=== PATIENT | female | born 1950 | race Two or more races ===

== ENCOUNTER 2019-02-15 12:24 | Outpatient (CLI) | payer OTHER ==
[~2019-02-15 12:24] MED LIST: ASA325 M1; COUMADIN3 MG PO; METOPROLOL SUCC25 MG
== END 2019-02-15 12:27 | disposition home or self-care (01) ==
LOC: MAMO-SONO 12:24
DX: Z12.31 Encounter for screening mammogram for malignant neoplasm of breast (principal); Z87.898 Personal history of other specified conditions

== ENCOUNTER → 2019-02-21 | Outpatient (CLI) | payer OTHER | END | disposition home or self-care (01) | LOC: NUCLEAR 14:00 | DX: M81.0 Age-related osteoporosis without current pathological fracture (principal) ==

== ENCOUNTER → 2019-06-13 | Outpatient (CLI) | payer OTHER | END | disposition home or self-care (01) | LOC: NUCLEAR 10:00 | DX: I87.009 Postthrombotic syndrome without complications of unspecified extremity (principal); I82.602 Acute embolism and thrombosis of unspecified veins of left upper extremity ==

== ENCOUNTER 2019-06-14 08:23 | Outpatient (CLI) | payer OTHER | END 2019-06-14 09:30 | disposition home or self-care (01) | LOC: NUCLEAR 08:23 | DX: I75.012 Atheroembolism of left upper extremity (principal); I87.009 Postthrombotic syndrome without complications of unspecified extremity; I82.602 Acute embolism and thrombosis of unspecified veins of left upper extremity ==

== ENCOUNTER 2023-08-04 07:07 | Outpatient (CLI) | payer OTHER | END 2023-08-04 07:09 | disposition home or self-care (01) | LOC: NUCLEAR 07:07 | PROVIDERS: ATTEND Specialist | DX: D35.1 Benign neoplasm of parathyroid gland (principal) | CPT/HCPCS: 78072; A9500 ==

== ENCOUNTER → 2024-08-07 | Outpatient (CLI) | payer OTHER | END | disposition home or self-care (01) | LOC: NUCLEAR 09:22 | PROVIDERS: ATTEND General Practice | DX: I73.9 Peripheral vascular disease, unspecified (principal); I87.2 Venous insufficiency (chronic) (peripheral) ==

== ENCOUNTER 2024-08-10 09:32 | Outpatient (CLI) | payer OTHER | END 2024-08-10 09:36 | disposition home or self-care (01) | LOC: NUCLEAR 09:32 | PROVIDERS: ATTEND General Practice | DX: I73.9 Peripheral vascular disease, unspecified (principal); I87.2 Venous insufficiency (chronic) (peripheral) ==

== ENCOUNTER 2024-08-14 10:26 | Outpatient (CLI) | payer OTHER | END 2024-08-14 10:30 | disposition home or self-care (01) | LOC: MAMO-SONO 10:26 | PROVIDERS: ATTEND General Practice | DX: N64.4 Mastodynia (principal); N60.11 Diffuse cystic mastopathy of right breast; N60.12 Diffuse cystic mastopathy of left breast; Z12.31 Encounter for screening mammogram for malignant neoplasm of breast ==

== ENCOUNTER 2024-08-29 10:29 | Outpatient (CLI) | payer OTHER | END 2024-08-29 10:32 | disposition home or self-care (01) | LOC: SONOGRAMA 10:29 | PROVIDERS: ATTEND General Practice | DX: E03.9 Hypothyroidism, unspecified (principal); E06.9 Thyroiditis, unspecified ==

== ENCOUNTER 2024-12-02 09:21 | Inpatient (IN) | payer OTHER ==
[~2024-12-02] VITALS: Ht 175.3 cm; Wt 104.3 kg
[2024-12-02] MEDS ORDERED: LISINOPRIL40 MG PO (09:32)
[2024-12-02] MEDS ORDERED: KEPPRA500 MG PO (09:33)
[2024-12-02] MEDS ORDERED: TOPROL XL100 M1 (09:33)
[2024-12-02] MEDS ORDERED: ZOLOFT50 MG PO (09:34)
[2024-12-02] MEDS ORDERED: POTASSIUM CHLORIDE 10 MEQ CAPSULE PO ONE (10:30)
[2024-12-02] MEDS ORDERED: 0.9 % SODIUM CHLORIDE 250 ML IV ONE (10:45)
[2024-12-02 10:51] LABS: HEMATOCRIT 30.3 % (36.0-45.00); HEMOGLOBIN 10.1 g/dL (12.0-15.00); MEAN CELL VOLUME 88.8 fL (80.00-100.00); MEAN CORPUSCULAR HEMOGLOBIN 29.5 pg (27.00-32.0); MEAN CORPUSCULAR HGB CONC 33.2 g/dl (32.0-36.0); PLATELET COUNT 152 K/uL (150-450); RED BLOOD COUNT 3.41 M/uL (4.00-6.00); RED CELL DISTRIBUTION WIDTH 14.8 % (11.5-14.5)
[2024-12-02 11:16] LABS: BILIRUBIN TOTAL 0.43 mg/dL (0.3-1.2); BILIRUBIN,CONJUGATED 0.14 mg/dL (0.0-0.2); BILIRUBIN,UNCONJUGATED 0.29 mg/dL (0.0-0.6); CALCIUM 10.3 mg/dL (8.5-10.1); CREATININE SERUM 1.37 mg/dL (0.55-1.02); GFR 37.69; GLOBULINA 3.5 G/DL (2.4-3.5); POTASSIUM 3.93 mEq/L (3.5-5.1); TOTAL PROTEIN 6.5 gm/dL (6.4-8.2)
[2024-12-02 11:27] LABS: INR 6.68
[2024-12-02 11:49] LABS: PARTIAL THROMBOPLASTIN TIME 40.7 SECONDS (22.0-34.0)
[2024-12-02 11:53] LABS: PROTHROMBIN TIME 63.3 SECONDS (9.0-11.5)
[2024-12-02] MEDS ORDERED: PHYTONADIONE 10 MG/ML AMPUL IV ONE (19:45)
[2024-12-02] MEDS ORDERED: 0.9 % SODIUM CHLORIDE 1,000 ML IV SCH (20:15)
[2024-12-02] MEDS ORDERED: PANTOPRAZOLE SODIUM 40 MG/VIAL VIAL IV SCH (21:00)
[2024-12-02] MEDS ORDERED: ATORVASTATIN CALCIUM 40 MG TABLET PO SCH (21:00)
[2024-12-02] MEDS ORDERED: DEXTROSE 50 % IN WATER 0.5 G/ML DISP.SYRIN IV PRN (23:45)
[2024-12-02] MEDS ORDERED: INSULIN LISPRO 1,000 UNIT/10 ML UNITS SUBCUTANEO PRN (23:45)
[2024-12-03 00:19] VITALS: BP 143/87; O2SAT 98
[2024-12-03 00:53] LABS: URINE APPEARANCE Clear; URINE BILIRRUBIN Negative (NEGATIVE); URINE BLOOD Trace; URINE COLOR Yellow; URINE GLUCOSE Negative (NEGATIVE); URINE KETONE Negative (NEGATIVE); URINE LEUKOCYTE Trace; URINE NITRATE Negative; URINE PROTEIN Negative (NEGATIVE); URINE UROBILINOGEN 0.2 E.U./dl
[2024-12-03 00:59] LABS: URINE BACTERIA 21.9 uL (0.0-1933); URINE EPITHELIAL CELLS 3.6 uL (0.0-38.8); URINE RBC 29.7 uL (0.0-20.8); URINE WBC 67.3 uL (0.0-23.2)
[2024-12-03 01:12] LABS: URINE CAST 0.14 uL (0.0-1.40)
[2024-12-03 01:21] LABS: COVID-19 AG NEGATIVE (NEGATIVE); INFLUENZA A AG NEGATIVE (NEGATIVE)
[2024-12-03 02:16] VITALS: BP 147/84
[2024-12-03 07:34] LABS: HEMATOCRIT 31.9 % (36.0-45.00); HEMOGLOBIN 10.5 g/dL (12.0-15.00); MEAN CELL VOLUME 89.5 fL (80.00-100.00); MEAN CORPUSCULAR HEMOGLOBIN 29.6 pg (27.00-32.0); PLATELET COUNT 151 K/uL (150-450); RED BLOOD COUNT 3.56 M/uL (4.00-6.00); RED CELL DISTRIBUTION WIDTH 14.6 % (11.5-14.5)
[2024-12-03 07:42] LABS: CALCIUM 9.7 mg/dL (8.5-10.1); CREATININE SERUM 1.05 mg/dL (0.55-1.02); GFR 51.23; POTASSIUM 3.94 mEq/L (3.5-5.1)
[2024-12-03 07:46] LABS: INR 2.25; PARTIAL THROMBOPLASTIN TIME 33.3 SECONDS (22.0-34.0)
[2024-12-03 07:50] LABS: PROTHROMBIN TIME 23.1 SECONDS (9.0-11.5)
[2024-12-03 08:41] VITALS: BP 151/84; O2SAT 97
[2024-12-03] MEDS ORDERED: LevETIRAcetam 500 MG TAB. PO SCH (09:00)
[2024-12-03] MEDS ORDERED: FERROUS SULFATE 325 MG TABLET.EC PO SCH (09:00)
[2024-12-03] MEDS ORDERED: FOLIC ACID 1 MG TABLET PO SCH (09:00)
[2024-12-03] MEDS ORDERED: METOPROLOL SUCCINATE 100 MG TAB.SR.24H PO SCH (09:00)
[2024-12-03] MEDS ORDERED: SERTRALINE HCL 50 MG TABLET PO SCH (09:00)
[2024-12-03] MEDS ORDERED: VITAMIN B COMPLEX 1 EACH PO SCH (09:00)
[2024-12-03] MEDS ORDERED: LISINOPRIL 40 MG TABLET PO SCH (09:00)
[2024-12-03 17:03] VITALS: BP 131/76
[2024-12-03] MEDS ORDERED: SOD FERRIC GLUC COMPLX/SUCROSE 125 MG in 0.9 % SODIUM CHLORIDE 100 ML IV SCH (19:52)
[2024-12-04 01:03] VITALS: BP 140/93; O2SAT 96
[2024-12-04 06:45] LABS: HEMATOCRIT 29.2 % (36.0-45.00); HEMOGLOBIN 10.1 g/dL (12.0-15.00); MEAN CELL VOLUME 87.1 fL (80.00-100.00); MEAN CORPUSCULAR HGB CONC 34.5 g/dl (32.0-36.0); PLATELET COUNT 144 K/uL (150-450); RED BLOOD COUNT 3.35 M/uL (4.00-6.00)
[2024-12-04 07:06] LABS: INR 1.14; PARTIAL THROMBOPLASTIN TIME 29.3 SECONDS (22.0-34.0); PROTHROMBIN TIME 12.3 SECONDS (9.0-11.5)
[2024-12-04 08:16] VITALS: BP 141/83; O2SAT 98
[2024-12-04] MEDS ORDERED: SOD FERRIC GLUC COMPLX/SUCROSE 62.5 MG in 0.9 % SODIUM CHLORIDE 50 ML IV SCH (09:00)
[2024-12-04 16:49] VITALS: BP 142/97
[2024-12-04] MEDS ORDERED: WARFARIN SODIUM 5 MG TABLET PO STA (17:40)
[2024-12-04] MEDS ORDERED: BARIUM SULFATE 450 ML ORAL.SUSP PO ONE (20:00)
[2024-12-05] MEDS ORDERED: WARFARIN SODIUM 3 MG TABLET PO SCH (21:00)
[2024-12-06 01:58] VITALS: BP 139/79; O2SAT 98
[2024-12-06 09:11] VITALS: BP 128/80
[2024-12-06 10:33] LABS: INR 1.24; PROTHROMBIN TIME 13.3 SECONDS (9.0-11.5)
[2024-12-06] MEDS ORDERED: BARIUM SULFATE 450 ML ORAL.SUSP PO STA (10:34)
[2024-12-06] MEDS ORDERED: SODIUM CHLORIDE 0.45 % 1,000 ML IV SCH (10:45)
[2024-12-06 11:03] LABS: PARTIAL THROMBOPLASTIN TIME 44.5 SECONDS (22.0-34.0)
[2024-12-06 17:53] VITALS: BP 119/90; O2SAT 99
[2024-12-06] MEDS ORDERED: PANTOPRAZOLE SODIUM 40 MG TABLET.DR PO SCH (21:00)
[2024-12-06 21:34] LABS: FERRITIN 717.5 NG/ML (8-252)
[2024-12-07 01:56] VITALS: BP 129/85; O2SAT 97
[2024-12-07] MEDS ORDERED: PANTOPRAZOLE SODIUM 40 MG TABLET.DR PO SCH (09:00)
[2024-12-07 09:29] VITALS: BP 141/86; O2SAT 95
[2024-12-07 10:25] LABS: HEMATOCRIT 28.1 % (36.0-45.00); HEMOGLOBIN 9.6 g/dL (12.0-15.00); MEAN CELL VOLUME 88.9 fL (80.00-100.00); MEAN CORPUSCULAR HEMOGLOBIN 30.5 pg (27.00-32.0); MEAN CORPUSCULAR HGB CONC 34.3 g/dl (32.0-36.0); PLATELET COUNT 144 K/uL (150-450); RED BLOOD COUNT 3.16 M/uL (4.00-6.00); RED CELL DISTRIBUTION WIDTH 14.8 % (11.5-14.5)
[2024-12-07 10:56] LABS: ALBUMIN 2.8 gm/dL (3.4-5.0); BILIRUBIN TOTAL 0.45 mg/dL (0.3-1.2); CALCIUM 9.9 mg/dL (8.5-10.1); CREATININE SERUM 0.98 mg/dL (0.55-1.02); GFR 55.48; GLOBULINA 2.8 G/DL (2.4-3.5); POTASSIUM 3.75 mEq/L (3.5-5.1); TOTAL PROTEIN 5.6 gm/dL (6.4-8.2)
[2024-12-07 11:12] LABS: FOLIC ACID > 20.00 ng/ml (4.78-20)
[2024-12-07] MEDS ORDERED: WARFARIN SODIUM 5 MG TABLET PO SCH (21:00)
[2024-12-09] MEDS ORDERED: WARFARIN SODIUM 3 MG TABLET PO SCH (21:00)
== END 2024-12-07 13:56 | disposition home or self-care (01) | DRG 918 ==
LOC: ER 09:21 → MEDI 23:48
PROVIDERS: Emergency Medicine; General Practice; Internal Medicine; Internal Medicine Hematology & Oncology; ADMIT Specialist; ATTEND Specialist
PROC: 4A12X4Z Monitoring of Cardiac Electrical Activity, External Approach (ICD-10-PCS; 2024-12-03)
PROC: BW21ZZZ Computerized Tomography (CT Scan) of Abdomen and Pelvis (ICD-10-PCS; 2024-12-04)
PROC: 02HV33Z Insertion of Infusion Device into Superior Vena Cava, Percutaneous Approach (ICD-10-PCS; principal; 2024-12-06)
PROC: BW21YZZ Computerized Tomography (CT Scan) of Abdomen and Pelvis using Other Contrast (ICD-10-PCS; 2024-12-06)
DX: T45.511A Poisoning by anticoagulants, accidental (unintentional), initial encounter (principal); K62.5 Hemorrhage of anus and rectum; D68.62 Lupus anticoagulant syndrome; I69.354 Hemiplegia and hemiparesis following cerebral infarction affecting left non-dominant side; N13.30 Unspecified hydronephrosis; N18.9 Chronic kidney disease, unspecified; N20.0 Calculus of kidney; I48.91 Unspecified atrial fibrillation; Z79.4 Long term (current) use of insulin; D53.9 Nutritional anemia, unspecified; I12.9 Hypertensive chronic kidney disease with stage 1 through stage 4 chronic kidney disease, or unspecified chronic kidney disease; E11.22 Type 2 diabetes mellitus with diabetic chronic kidney disease; Z79.01 Long term (current) use of anticoagulants